=== PATIENT | female | born 1940 | race Caucasian/White ===

== ENCOUNTER 2016-09-30 11:36 | Emergency (ER) | payer OTHER ==
[~2016-09-30] VITALS: Ht 157.5 cm; Wt 73.9 kg
[~2016-09-30 11:36] MED LIST: ASPIRIN81 M1 PO; CALTRATE 6001 TABLET PO; GLUCOSAMINE &1 EACH PO; LIPITOR20 MG PO; METHADOSE10 MG PO; SOMA350 MG PO; XANAX0.5 MG PO; ZIAC 2.5/6.251 TAB PO; ZOLOFT100 M1 PO
[2016-09-30 12:23] LABS: HEMATOCRIT 40.2 % (36.0-46.0); MCH 28.9 PG (29.0-34.0); MCHC 32.8 G/DL (30.0-36.0); MEAN PLAT.VOLUME 9.6 uM^3 (9.5-12.4); PLATELET COUNT 252 K/uL (156-360); RBC DIS.WIDTH-CV 13.9 % (11.8-14.6); RBC DIS.WIDTH-SD 44.6 % (39-53); RED BLOOD COUNT 4.57 M/uL (3.80-5.20); WHITE BLOOD COUNT 12.2 K/uL (4.1-10.2)
[2016-09-30 12:45] LABS: CHLORIDE 107 mEq/L (99-109); POTASSIUM 3.4 mEq/L (3.7-5.4); SODIUM 143 mEq/L (136-147)
[2016-09-30 12:47] LABS: GLUCOSE 100 mg/dL (70-99)
[2016-09-30 12:48] LABS: ANION GAP 12 MEQ/L (2-14)
[2016-09-30 12:51] LABS: GFR ESTIMATE (CALCULATED) > 59 mL/min/; UREA NITROGEN (BUN) 17 mg/dL (9-23)
[2016-09-30 12:57] LABS: ADD MIUA? NO; BILIRUBIN NEGATIVE; BLOOD NEGATIVE; COLOR YELLOW ((YELLOW)); GLUCOSE (STRIP) NEGATIVE; KETONES NEGATIVE; LEUKOCYTES NEGATIVE; NITRITE NEGATIVE; PROTEIN (STRIP) 30; UCUL ADDED? NO; UROBILINOGEN 0.2 MG/DL (0.2-1.0)
[2016-09-30] MEDS ORDERED: CENTRUM SILVER1 EAC3 PO (13:33)
[2016-09-30] MEDS ORDERED: FIBER LAXATIV0.52 GM PO (13:34)
[2016-09-30] MEDS ORDERED: GABAPENTIN600 MG PO (13:34)
[2016-09-30] MEDS ORDERED: RAZADYNE4 MG PO (13:34)
[2016-09-30] MEDS ORDERED: RISPERDAL0.5 MG PO (13:36)
[2016-09-30] MEDS ORDERED: PRIMIDONE50 MG PO (13:36)
[2016-09-30] MEDS ORDERED: SIMVASTATIN40 MG PO (13:36)
[2016-09-30] MEDS ORDERED: EFFEXOR75 MG PO (13:36)
[2016-09-30] MEDS ORDERED: SYMBICORT60 INHALA1 IH (13:37)
[2016-09-30 15:01] VITALS: BP 131/72
[2016-10-01] MEDS ORDERED: ASPIRIN81 M2 PO (21:48)
[2016-10-01] MEDS ORDERED: CERTAVITE SR W1 EACH PO (21:49)
[2016-10-01] MEDS ORDERED: FIBER THERAPY625 MG PO (21:50)
== END 2016-09-30 15:40 | disposition home or self-care (01) ==
LOC: EME 11:36
PROVIDERS: Emergency Medicine
DX: S50.01XA Contusion of right elbow, initial encounter (principal); W18.30XA Fall on same level, unspecified, initial encounter; Y92.199 Unspecified place in other specified residential institution as the place of occurrence of the external cause; J40 Bronchitis, not specified as acute or chronic; G30.9 Alzheimer's disease, unspecified; F02.80 Dementia in other diseases classified elsewhere, unspecified severity, without behavioral disturbance, psychotic disturbance, mood disturbance, and anxiety; J44.9 Chronic obstructive pulmonary disease, unspecified; I10 Essential (primary) hypertension; E78.5 Hyperlipidemia, unspecified; Z79.82 Long term (current) use of aspirin; F17.200 Nicotine dependence, unspecified, uncomplicated
CPT/HCPCS: 71020; 72170; 73080; 80048; 81003; 83605; 85027; 99281; 99283

== ENCOUNTER 2016-10-01 19:35 | Emergency (ER) | payer OTHER ==
[~2016-10-01] VITALS: Ht 149.9 cm; Wt 73.5 kg
[~2016-10-01 19:35] MED LIST changes: +CENTRUM SILVER1 EAC3 PO; +EFFEXOR75 MG PO; +FIBER LAXATIV0.52 GM PO; +GABAPENTIN600 MG PO; +PRIMIDONE50 MG PO; +RAZADYNE4 MG PO; +RISPERDAL0.5 MG PO; +SIMVASTATIN40 MG PO; +SYMBICORT60 INHALA1 IH
[2016-10-01 20:11] LABS: BACTERIA RARE /HPF; CASTS NONE SEEN /LPF; CRYSTALS PRESENT; EPITHELIAL CELLS RARE /HPF; MUCUS NONE SEEN /LPF; RED BLOOD CELLS 0-5 /HPF (0-5); WHITE BLOOD CELLS 0-5 /HPF (0-5)
[2016-10-01 20:18] LABS: HEMATOCRIT 39.7 % (36.0-46.0); MCH 29.4 PG (29.0-34.0); MCHC 33.2 G/DL (30.0-36.0); MCV 88.4 FL (83-99); MEAN PLAT.VOLUME 10.2 uM^3 (9.5-12.4); PLATELET COUNT 264 K/uL (156-360); RBC DIS.WIDTH-SD 44.7 % (39-53); RED BLOOD COUNT 4.49 M/uL (3.80-5.20); WHITE BLOOD COUNT 10.8 K/uL (4.1-10.2)
[2016-10-01 20:33] LABS: CHLORIDE 109 mEq/L (99-109); POTASSIUM 3.2 mEq/L (3.7-5.4); SODIUM 144 mEq/L (136-147)
[2016-10-01 20:34] LABS: GLUCOSE 124 mg/dL (70-99)
[2016-10-01 20:36] LABS: ANION GAP 10 MEQ/L (2-14)
[2016-10-01 20:38] LABS: GFR ESTIMATE (CALCULATED) 57 mL/min/
[2016-10-01 20:41] LABS: UREA NITROGEN (BUN) 26 mg/dL (9-23)
[2016-10-01] MEDS ORDERED: ASPIRIN81 M2 PO (21:48)
[2016-10-01] MEDS ORDERED: CERTAVITE SR W1 EACH PO (21:49)
[2016-10-01] MEDS ORDERED: FIBER THERAPY625 MG PO (21:50)
[2016-10-01 23:38] VITALS: BP 149/83
== END 2016-10-01 23:39 | disposition home or self-care (01) ==
LOC: EME 19:35
DX: F03.90 Unspecified dementia, unspecified severity, without behavioral disturbance, psychotic disturbance, mood disturbance, and anxiety (principal); E87.6 Hypokalemia; W18.30XA Fall on same level, unspecified, initial encounter; J44.9 Chronic obstructive pulmonary disease, unspecified; E78.5 Hyperlipidemia, unspecified; I10 Essential (primary) hypertension; F17.200 Nicotine dependence, unspecified, uncomplicated
CPT/HCPCS: 70450; 80048; 81003; 81015; 85027; 99281; 99284

== ENCOUNTER 2016-10-04 02:50 | Emergency (ER) | payer OTHER ==
[~2016-10-04] VITALS: Ht 160 cm; Wt 74.4 kg
[~2016-10-04 02:50] MED LIST changes: +ASPIRIN81 M2 PO; +CERTAVITE SR W1 EACH PO; +FIBER THERAPY625 MG PO
[2016-10-04 03:51] LABS: INTER. NORMALIZED RATIO 1.1; PROTHROMBIN TIME 10.7 (9.2-11.2)
[2016-10-04 03:54] LABS: ADD MIUA? NO; BILIRUBIN NEGATIVE; BLOOD NEGATIVE; COLOR YELLOW ((YELLOW)); GLUCOSE (STRIP) NEGATIVE; KETONES NEGATIVE; LEUKOCYTES NEGATIVE; NITRITE NEGATIVE; PROTEIN (STRIP) 30; SPECIFIC GRAVITY 1.024 (1.000-1.030); UCUL ADDED? NO; UROBILINOGEN 0.2 MG/DL (0.2-1.0)
[2016-10-04 04:05] LABS: TROP-I INTERPRETATION NEGATIVE; TROPONIN-I < 0.01 ng/mL (0.0-0.30)
[2016-10-04 04:08] LABS: CHLORIDE 111 mEq/L (99-109); POTASSIUM 3.5 mEq/L (3.7-5.4); SODIUM 144 mEq/L (136-147)
[2016-10-04 04:10] LABS: GLUCOSE 119 mg/dL (70-99)
[2016-10-04 04:11] LABS: ANION GAP 9 MEQ/L (2-14)
[2016-10-04 04:14] LABS: GFR ESTIMATE (CALCULATED) > 59 mL/min/; UREA NITROGEN (BUN) 30 mg/dL (9-23)
[2016-10-04 04:40] LABS: HEMATOCRIT 38.2 % (36.0-46.0); MCH 29.5 PG (29.0-34.0); MCHC 32.5 G/DL (30.0-36.0); MEAN PLAT.VOLUME 9.9 uM^3 (9.5-12.4); PLATELET COUNT 228 K/uL (156-360); RBC DIS.WIDTH-CV 14.1 % (11.8-14.6); WHITE BLOOD COUNT 9.6 K/uL (4.1-10.2)
[2016-10-04 04:41] LABS: BASOPHIL COUNT 0.1 K/uL (0-0.1); EOSINOPHIL COUNT 0.2 K/uL (0-0.3); IMMATURE GRANULOCYTE (%) 0.3 % (0.0-0.7); LYMPHOCYTE COUNT 2.3 K/uL (1.0-2.8); MONOCYTE (%) 10.6 % (3-12); NEUTROPHIL (%) 62.7 % (45-76)
[2016-10-04 05:00] LABS: HDL CHOLESTEROL 38 MG/DL (Desirable>=50); LDL CHOLESTEROL 51 mg/dL (Desirable<100); NON-HDL CHOLESTEROL 81 mg/dL (Desirable<160); TOTAL CHOLESTEROL 119 mg/dL (Desirable<200); TRIGLYCERIDES 148 MG/DL (Normal: <150)
[2016-10-04 06:22] VITALS: BP 148/70
[2016-10-04 07:17] LABS: Estimated Average Glucose 128 mg/dL (70-123); HEMOGLOBIN A1c (GLYCOHEMOGLOB) 6.1 % HGB (Below 5.7)
== END 2016-10-04 06:26 | disposition home or self-care (01) ==
LOC: EME → EDBD 02:50 → EME 06:26
PROVIDERS: Emergency Medicine
DX: Z04.3 Encounter for examination and observation following other accident (principal); Z91.81 History of falling; J44.9 Chronic obstructive pulmonary disease, unspecified; I10 Essential (primary) hypertension; F32.9 Major depressive disorder, single episode, unspecified; R40.0 Somnolence; E78.5 Hyperlipidemia, unspecified; Z79.82 Long term (current) use of aspirin; F17.200 Nicotine dependence, unspecified, uncomplicated
CPT/HCPCS: 70450; 71010; 80048; 80061; 81003; 83036; 84484; 85025; 85610; 85730; 93005; 99281; 99284